=== PATIENT | male | born 1970 | race Caucasian/White ===

== ENCOUNTER 2016-05-26 09:14 | Emergency (ER) | payer OTHER ==
[2016-05-26 09:21] VITALS: TEMP 98.2; BMI 29.9
[2016-05-26] MEDS ORDERED: KETOROLAC TROMETHAMINE 30 MG/1 ML VIAL ONE (10:11)
[2016-05-26] MEDS ORDERED: ONDANSETRON 4 MG/2 ML VIAL ONE (10:12)
[2016-05-26 10:23] VITALS: BP 129/95; PULSE 90
[2016-05-26 10:23] LABS: BASOPHIL 0.3 % (0-2.0); EOSINOPHIL 2.3 % (0-4.5); MCH 30.7 pg (25.7-33.7); MCHC 33.8 g/dl (32.0-35.9); MEAN CELL VOLUME 90.8 fl (80-96); MEAN PLT VOLUME 8.7 fl (7.5-11.1); NEUTROPHILS 57.6 % (42.8-82.8); PLATELET COUNT 302 K/MM3 (134-434); RDW 12.4 % (11.9-15.9); WHITE BLOOD COUNT 9.1 K/mm3 (4.0-10.0)
[2016-05-26 10:41] LABS: ALBUMIN 3.8 g/dl (3.4-5.0); ALK PHOS 44 U/L (45-117); ANION GAP 9 (8-16); BILIRUBIN,TOTAL 0.4 mg/dL (0.2-1.0); CALCIUM 8.2 mg/dL (8.5-10.1); CO2 23 mmol/L (21-32); CREATININE 0.7 mg/dL (0.7-1.3); GLUCOSE,RANDOM 123 mg/dL (74-106); SGPT/ALT 75 U/L (12-78); TOT PROT 7.2 g/dl (6.4-8.2)
[2016-05-26 10:46] LABS: SGOT/AST 33 U/L (15-37)
--- NOTE | 2016-05-26 11:03 | PDOC ---
History of Present Illness - General History Source: Patient Exam Limitations: No Limitations <Esperanza Doyle - Last Filed: 05/26/16 10:56> - History of Present Illness Initial Comments: 05/26/16 11:12 The patient is a 45 year old male with a past medical hx of diabetes, and hypertension who presents to the ED for evaluation of hypoglycemia since today. 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 He ate an apple and drank a Coke and his levels kept decreasing. He reports the lowest level was a 47. He states he has never had a blood sugar level this low, therefore, he came to the ED for further evaluation. He notes he ate a full meal around 0200 this morning at work. The patient states he does not check his sugar levels regularly, only when he feels off. The patient notes he has been sick for three days with nausea, vomiting, and diarrhea, but has no further complaints at this time. He notes he has been compliant with his Metformin. The patient denies abdominal pain The patient denies SOB, chest pain, weakness The patient denies fever, chills Allergies: NKDA Social: No toxic habits reported Surgical: None reported PCP: Dr. Foster <Nieves Lowery - Last Filed: 05/26/16 11:13> - General Chief Complaint: Blood Sugar Problem Stated Complaint: BLOOD SUGAR PROBLEM Time Seen by Provider: 05/26/16 09:23 Past History - Past Medical History Diabetes: Yes HTN: Yes - Psycho/Social/Smoking Cessation Hx Suicidal Ideation: No Smoking History: Never smoked Information on smoking cessation initiated: No Hx Alcohol Use: No Drug/Substance Use Hx: No Substance Use Type: None <Esperanza Doyle - Last Filed: 05/26/16 10:56> <Nieves Lowery - Last Filed: 05/26/16 11:13> - Past Medical History Allergies/Adverse Reactions: Allergies Allergy/AdvReac Type Severity Reaction Status Date / Time No Known Allergies Allergy Verified 05/26/16 09:19 Home Medications: Ambulatory Orders Glimepiride [Amaryl -] 4 mg PO DAILY@0700 05/26/16 Lisinopril 5 mg PO DAILY 05/26/16 Metformin HCl [Glucophage] 1,000 mg PO BID 05/26/16 Review of Systems - Review of Systems Able to Perform ROS?: Yes Comments:: 05/26/16 11:12 GENERAL/CONSTITUTIONAL: +Hypoglycemia No: fever, chills, weakness, loss of appetite. HEAD, EYES, EARS, NOSE AND THROAT: No: change in vision, ear pain, discharge, sore throat, throat swelling. CARDIOVASCULAR: No: chest pain, lightheadedness, palpitations, syncope RESPIRATORY: No: cough, shortness of breath, wheezing, hemoptysis, stridor. GASTROINTESTINAL: +nausea, diarrhea, vomiting. No: abdominal cramping, rectal bleeding, constipation. GENITOURINARY: No: dysuria, hematuria, frequency, urgency, flank pain. MUSCULOSKELETAL: No: back pain, neck pain, joint pain, muscle swelling or pain SKIN: No: lesions, pallor, rash or easy bruising. NEUROLOGIC: No: headache, vertigo, paresthesias, weakness ENDOCRINE: No: unexplained weight gain or loss HEMATOLOGIC/LYMPHATIC: No: anemia, easy bleeding, swelling nodes <Nieves Lowery - Last Filed: 05/26/16 11:13> *Physical Exam - Vital Signs Last Vital Signs Temp Pulse Resp BP Pulse Ox 98.2 F 90 16 129/95 95 05/26/16 09:17 05/26/16 10:23 05/26/16 10:23 05/26/16 10:23 05/26/16 10:23 <Esperanza Doyle - Last Filed: 05/26/16 10:56> - Vital Signs Last Vital Signs Temp Pulse Resp BP Pulse Ox 98.2 F 90 16 129/95 95 05/26/16 09:17 05/26/16 10:23 05/26/16 10:23 05/26/16 10:23 05/26/16 10:23 - Physical Exam Comments: 05/26/16 11:12 GENERAL: The patient is in no acute distress. HEAD: Normal with no signs of trauma. EYES: PERRLA, EOMI, sclera anicteric, conjunctiva clear. ENT: Ears normal, nares patent, oropharynx clear without exudates. Moist mucous membranes. NECK: Normal range of motion, supple without lymphadenopathy, JVD, or masses. LUNGS: Breath sounds equal, clear to auscultation bilaterally. No wheezes, and no crackles. HEART:Regular rate and rhythm, normal S1 and S2 without murmur, rub or gallop. ABDOMEN: Soft, nontender, normoactive bowel sounds. No guarding, no rebound. EXTREMITIES: Normal range of motion, no edema. No clubbing or cyanosis. No erythema, or tenderness. NEUROLOGICAL: Cranial nerves II through XII grossly intact. Normal speech. No focal neurological deficits. MUSCULOSKELETAL: Back nontender to palpation, no CVA tenderness SKIN: Warm, Dry, normal turgor, no rashes or lesions noted. <Nieves Lowery - Last Filed: 05/26/16 11:13> ED Treatment Course - LABORATORY CBC & Chemistry Diagram: 05/26/16 10:02 05/26/16 10:02 - ADDITIONAL ORDERS Additional order review: Laboratory Results 05/26/16 10:02 Sodium 139 Potassium 4.2 Chloride 107 Carbon Dioxide 23 Anion Gap 9 BUN 11 Creatinine 0.7 Creat Clearance w eGFR > 60 Random Glucose 123 H Calcium 8.2 L Total Bilirubin 0.4 AST 33 ALT 75 Alkaline Phosphatase 44 L Total Protein 7.2 Albumin 3.8 05/26/16 10:02 RBC 4.97 MCV 90.8 MCHC 33.8 RDW 12.4 MPV 8.7 Neutrophils % 57.6 Lymphocytes % 26.5 Monocytes % 13.3 H Eosinophils % 2.3 Basophils % 0.3 <Esperanza Doyle - Last Filed: 05/26/16 10:56> - LABORATORY CBC & Chemistry Diagram: 05/26/16 10:02 05/26/16 10:02 - ADDITIONAL ORDERS Additional order review: Laboratory Results 05/26/16 10:02 Sodium 139 Potassium 4.2 Chloride 107 Carbon Dioxide 23 Anion Gap 9 BUN 11 Creatinine 0.7 Creat Clearance w eGFR > 60 Random Glucose 123 H Calcium 8.2 L Total Bilirubin 0.4 AST 33 ALT 75 Alkaline Phosphatase 44 L Total Protein 7.2 Albumin 3.8 05/26/16 10:02 RBC 4.97 MCV 90.8 MCHC 33.8 RDW 12.4 MPV 8.7 Neutrophils % 57.6 Lymphocytes % 26.5 Monocytes % 13.3 H Eosinophils % 2.3 Basophils % 0.3 <Nieves Lowery - Last Filed: 05/26/16 11:13> Medical Decision Making - Medical Decision Making 05/26/16 10:56 A portion of this note was documented by scribe services under my direction. I have reviewed the details of the note, within reason, and agree with the documentation with the following case summary and management plan written by me. Nursing documentation reviewed and incorporated into medical decision making This is a 45 yo M with a history of NIDDM, presenting to the ER Pt states he worked the overnight shift States that he had a recent nausea, vomiting, diarrhea Vomiting stopped Now patient states that when he returned from work this morning he felt weak and shaky His took his sugar It was 87 She gave him an apple Sugar was taken tow additional times Finally, sugar 40s Pt drank coke came to ER Sugar 134 Pt states he feels better No recent changes in medications Glimepirmide added 3 months ago 05/26/16 11:03 Laboratory Tests 05/26/16 05/26/16 10:02 10:02 WBC 9.1 Hgb 15.2 Hct 45.1 Plt Count 302 BUN 11 Creatinine 0.7 Random Glucose 123 H Pt asked to: Monitor his blood glucose Eat frequent small meals follow up with PMD re: oral hypoglycemic medications Clinical Impression: hypoglycemia, <Esperanza Doyle - Last Filed: 05/26/16 10:56> *DC/Admit/Observation/Transfer - Discharge Dispostion Admit: No <Esperanza Doyle - Last Filed: 05/26/16 10:56> - Attestations Scribe Attestion: 05/26/16 11:13 Documentation prepared by Nieves Lowery, acting as behavioral medical director for Esperanza Doyle MD/DO. <Nieves Lowery - Last Filed: 05/26/16 11:13> Diagnosis at time of Disposition: Hypoglycemia - Discharge Dispostion Disposition: HOME Condition at time of disposition: Improved - Referrals Referrals: Kristin Disla MD [Primary Care Provider] - - Patient Instructions Printed Discharge Instructions: DI for Hypoglycemia Additional Instructions: Olman I am sorry that your blood glucose was low this morning Please eat frequent and small meals Please plan to check your blood glucose at least twice per day Please call today for a follow up appointment with your primary care physician ( for medication adjustment) Please check your blood glucose immediately if you are feeling like your felt this morning Please keep something sweet with you in case your blood glucose goes very low - Post Discharge Activity Work/School Note: Back to Work
[2016-05-26 11:16] LABS: ACETONE SERUM NEGATIVE (NEGATIVE)
== END 2016-05-26 11:41 | disposition home or self-care (01) ==
LOC: JER 09:14
DX: E11.649 Type 2 diabetes mellitus with hypoglycemia without coma (principal); Z79.84 Long term (current) use of oral hypoglycemic drugs; I10 Essential (primary) hypertension
CPT/HCPCS: 36415; 80053; 82009; 85025; 99285-25

== ENCOUNTER 2017-08-27 06:26 | Inpatient (IN) | payer OTHER ==
--- NOTE | 2017-08-27 09:12 | PDOC ---
History of Present Illness - General Chief Complaint: Pain, Acute Stated Complaint: NECK PAIN Time Seen by Provider: 08/27/17 09:12 - History of Present Illness Initial Comments: 46 year old male with PMH of IDDM and HTN presenting with pain and swelling in the inferior posterior scalp for the past two months. States that he noticed slight swelling and pain in this area two months prior that has gradually worsened as the mass expanded over the past two months. He saw his PCP and they told him to follow up in the ED if became too painful but states that he was scheduled for a follow up but it became more painful today so he wanted to have it evaluated earlier. 08/27/17 11:51 Past History - Past Medical History Allergies/Adverse Reactions: Allergies Allergy/AdvReac Type Severity Reaction Status Date / Time No Known Allergies Allergy Verified 08/27/17 08:20 Home Medications: Ambulatory Orders Glimepiride [Amaryl -] 4 mg PO DAILY@0700 05/26/16 Lisinopril 5 mg PO DAILY 05/26/16 Metformin HCl [Glucophage] 1,000 mg PO BID 05/26/16 Aspirin Coated [Ecotrin -] 81 mg PO PRN 08/27/17 COPD: No Diabetes: Yes HTN: Yes - Suicide/Smoking/Psychosocial Hx Smoking History: Never smoked Have you smoked in the past 12 months: No Information on smoking cessation initiated: No Hx Alcohol Use: No Drug/Substance Use Hx: No Substance Use Type: None Review of Systems - Review of Systems Constitutional: No: Chills, Diaphoresis, Fever HEENTM: No: Blurred Vision, Recent change in vision Respiratory: No: Orthopnea, Shortness of Breath Cardiac (ROS): No: Chest Pain, Irregular Heart Rate ABD/GI: No: Constipated, Diarrhea, Nausea, Vomiting : No: Burning, Dysuria, Discharge Integumentary: Yes: Lesions, Lumps. No: Erythema, Flushing Neurological: Yes: Headache. No: Numbness, Paresthesia Psychiatric: No: Frequent Crying, Stressors *Physical Exam - Vital Signs Last Vital Signs Temp Pulse Resp BP Pulse Ox 97.4 F L 85 18 122/75 100 08/27/17 07:01 08/27/17 07:01 08/27/17 07:01 08/27/17 07:01 08/27/17 07:01 - Physical Exam General Appearance: Yes: Nourished, Appropriately Dressed. No: Apparent Distress HEENT: positive: EOMI, VINI, Normal ENT Inspection, Normal Voice Neck: positive: Trachea midline, Normal Thyroid, Supple. negative: Tender, Rigid Respiratory/Chest: positive: Lungs Clear, Respiratory Distress. negative: Chest Tender, Accessory Muscle Use Cardiovascular: positive: Regular Rhythm, Regular Rate Gastrointestinal/Abdominal: positive: Normal Bowel Sounds, Flat, Soft. negative : Tender Musculoskeletal: positive: Normal Inspection. negative: CVA Tenderness Extremity: positive: Normal Capillary Refill, Normal Inspection, Normal Range of Motion. negative: Tender Integumentary: positive: Normal Color, Dry, Warm, Swelling (Small posterior, inferior, occiptal, subcutaneous, firm, mobile, well circumscribed and measuring 2 cm in diameter) Neurologic: positive: permit review assistant II-XII NML intact, Fully Oriented, Alert, Normal Mood/ Affect, Normal Response, Motor Strength / ED Treatment Course - LABORATORY CBC & Chemistry Diagram: 08/27/17 11:40 08/27/17 11:40 Medical Decision Making - Medical Decision Making 46 year old male presenting with painful nodule in the posterior occipital scalp. CT read as a subcutaneous cyst. No obvious sign of infection although there is lymphadenopathy and reactive changes around the cyst. 08/27/17 14:57 Dr. Garcia evaluated the patient and will admit him for OR cyst removal because of diabetic history/ risk factor. Patient signed out in stable condition to Dr. Garcia. 08/27/17 17:05 *DC/Admit/Observation/Transfer Diagnosis at time of Disposition: Cyst - Discharge Dispostion Condition at time of disposition: Improved Admit: No - Referrals Referrals: Kristin Disla MD [Primary Care Provider] - Austyn Lopez MD [Staff Physician] - - Patient Instructions - Post Discharge Activity
--- NOTE | 2017-08-27 09:14 | PDOC ---
Attending Attestation - Resident Resident Name: Jocelyn Guzmán - ED Attending Attestation I have performed the following: I have examined & evaluated the patient, The case was reviewed & discussed with the resident, I agree w/resident's findings & plan, Exceptions are as noted - HPI HPI: 46 yo M presents with 2 week history of worsening R posterior neck mass. Now exquisitely tender. +Swelling. No f/c, weight changes, night sweats. - Physicial Exam PE: GENERAL: Awake, alert, and fully oriented, in no acute distress HEAD: No signs of trauma EYES: PERRLA, EOMI, sclera anicteric, conjunctiva clear ENT: Auricles normal inspection, hearing grossly normal, nares patent, oropharynx clear without exudates. Moist mucosa NECK: Normal ROM, supple. +Firm tender mass to R posterior neck. No anterior cervical lymphadenopathy. LUNGS: Breath sounds equal, clear to auscultation bilaterally. No wheezes, and no crackles. No supraclavicular lymphadenopathy. HEART: Regular rate and rhythm, normal S1 and S2, no murmurs, rubs or gallops ABDOMEN: Soft, nontender, normoactive bowel sounds. No guarding, no rebound. No masses EXTREMITIES: Normal range of motion, no edema. No clubbing or cyanosis. No cords, erythema, or tenderness. No axillary lymphadenopathy. NEUROLOGICAL: Cranial nerves II through XII grossly intact. Normal speech, normal gait SKIN: Warm, Dry, normal turgor, no rashes or lesions noted. - Medical Decision Making Pt with posterior neck mass, firm tender to palpation. Will obtain CT soft tissue to further evaluate for possible mass.
[2017-08-27] MEDS ORDERED: IBUPROFEN 600 MG TABLET (FP) PO ONE ×2 (10:59→11:42)
[2017-08-27 11:46] LABS: EOS % 1.9 % (0-4.5); HEMOGLOBIN 15.2 GM/dL (11.7-16.9); LYMPH % 44.5 % (8-40); MCH 30.8 pg (25.7-33.7); MCHC 34.6 g/dl (32.0-35.9); MEAN CELL VOLUME 89.1 fl (80-96); MEAN PLT VOLUME 8.3 fl (7.5-11.1); MONO % 9.7 % (3.8-10.2); NEUT % 42.9 % (42.8-82.8); PLATELET COUNT 306 K/MM3 (134-434); RBC 4.94 M/mm3 (4.00-5.60); RDW 12.1 % (11.9-15.9)
[2017-08-27 12:11] LABS: ALBUMIN 3.7 g/dl (3.4-5.0); ALK PHOS 68 U/L (45-117); ANION GAP 6 (8-16); BILIRUBIN,TOTAL 0.6 mg/dL (0.2-1.0); BLOOD UREA NITROGEN 19 mg/dL (7-18); CALCIUM 8.9 mg/dL (8.5-10.1); CHLORIDE 104 mmol/L (98-107); CO2 28 mmol/L (21-32); CREATININE 0.6 mg/dL (0.7-1.3); GLUCOSE,RANDOM 172 mg/dL (74-106); POTASSIUM 4.1 mmol/L (3.5-5.1); SGOT/AST 21 U/L (15-37); SGPT/ALT 57 U/L (12-78); SODIUM 138 mmol/L (136-145); TOT PROT 7.3 g/dl (6.4-8.2)
--- NOTE | 2017-08-27 15:36 | HP ---
Admitting History and Physical - Admission Chief Complaint: painful neck mass History of Present Illness: 46 yo male PMH HTN, DM type 2 presents with pain and swelling in the right posterior neck for the past two months. States that he noticed slight swelling and pain in this area two months prior that has gradually worsened as the mass expanded rated 10/10 at present. He saw his PCP and he was referred to the ED if became too painful. He denies trauma in the area. He denies fevers and chills, motion was limited by pain. He has no other similar lesions anywhere. Ct scan of the area noted 1.6cm skin related cyst. no personal history of hidradenits. History Source: Patient, Medical Record Limitations to Obtaining History: No Limitations - Past Medical History Cardiovascular: Yes: HTN Endocrine: Yes: Diabetes Mellitus - Smoking History Smoking history: Never smoked Have you smoked in the past 12 months: No - Alcohol/Substance Use Hx Alcohol Use: No History of Substance Use: reports: None - Social History Usual Living Arrangement: Yes: With Spouse ADL: Independent History of Recent Travel: No Home Medications - Allergies Allergies/Adverse Reactions: Allergies Allergy/AdvReac Type Severity Reaction Status Date / Time No Known Allergies Allergy Verified 08/27/17 08:20 - Home Medications Home Medications: Ambulatory Orders Glimepiride [Amaryl -] 4 mg PO DAILY@0700 05/26/16 Lisinopril 5 mg PO DAILY 05/26/16 Metformin HCl [Glucophage] 1,000 mg PO BID 05/26/16 Aspirin Coated [Ecotrin -] 81 mg PO PRN 08/27/17 Review of Systems - Review of Systems Constitutional: denies: Chills, Fever Eyes: denies: Blind Spots, Recent Change in Vision HENT: denies: Throat Pain Neck: reports: Swollen Glands, Tenderness (exquisite tenderness, right posterior neck 2cm fixed on skin. red and warm to touch) Cardiovascular: denies: Chest Pain, Palpitations Respiratory: denies: Cough, SOB Gastrointestinal: denies: Abdominal Pain Musculoskeletal: reports: Back Pain. denies: Muscle Pain, Muscle Cramps Integumentary: reports: Lump (right posterior neck). denies: Lesions, Pruritis Neurological: denies: Seizure, Syncope Endocrine: denies: Unexplained Weight Gain, Unexplained Weight Loss Hematology/Lymphatic: denies: Easily Bruised, Excessive Bleeding Psychiatric: denies: Anxiety, Depression Physical Examination Vital Signs: Vital Signs Temperature 97.4 F L 08/27/17 07:01 Pulse Rate 79 08/27/17 11:01 Respiratory Rate 18 08/27/17 07:01 Blood Pressure 108/67 08/27/17 11:01 O2 Sat by Pulse Oximetry (%) 98 08/27/17 11:01 Vital Signs Period Temp Pulse Resp BP Sys/Garcia Pulse Ox Last 24 Hr 97.4 F 79-85 18 108-122/67-75 98-100 Constitutional: Yes: Well Nourished, No Distress, Calm Eyes: Yes: Conjunctiva Clear, EOM Intact HENT: Yes: Atraumatic, Normocephalic Neck: Yes: Supple, Trachea Midline, Lymphadenopathy, Other (right posterior neck mass, firm, warm and tender to touch) Cardiovascular: Yes: Regular Rate and Rhythm, S1, S2. No: Murmur Respiratory: Yes: Regular, CTA Bilaterally Gastrointestinal: Yes: Normal Bowel Sounds, Soft. No: Tenderness ...Rectal Exam: Yes: Deferred Renal/: No: CVA Tenderness - Left, CVA Tenderness - Right Extremities: No: Cool, Cyanosis Edema: No Peripheral Pulses WNL: Yes Peripheral Pulses: Left Doralis Pedis: 2+, Right Dorsalis Pedis: 2+ Integumentary: No: Jaundice, Rash Neurological: Yes: Alert, Oriented Psychiatric: Yes: Alert, Oriented Labs: CBC, BMP 08/27/17 11:40 08/27/17 11:40 Imaging - Results Cat Scan: Report Reviewed, Image Reviewed (1.6cm right posterior sebaceous cyst with pericystic inflammatory changes) Problem List - Problems (1) Infected sebaceous cyst of skin Assessment/Plan: 46 yo male Diabetic with a right posterior infected sebaceous cyst Admit 23hours for pain control and antibiotics NPO after midnight IVF hydration IV antibiotics Discussed with patient risks, benefits and alternatives of excision of right posterior neck mass, including but not limited to bleeding, infection, injury to adjacent structures, need for further procedures, ; alternatives include antibiotics, delayed or no surgery - risks of this include failure of nonoperative therapy, sepsis, recurrence, .Patient desires to proceed with operation - will take to OR for above. Informed consent signed for same. Code(s): L72.3 - SEBACEOUS CYST; L08.9 - LOCAL INFECTION OF THE SKIN AND SUBCUTANEOUS TISSUE, UNSP (2) Cyst of neck Code(s): BVZ5235 - (3) HTN (hypertension) Code(s): I10 - ESSENTIAL (PRIMARY) HYPERTENSION Qualifiers: Hypertension type: essential hypertension Qualified Code(s): I10 - Essential (primary) hypertension (4) Diabetes Code(s): E11.9 - TYPE 2 DIABETES MELLITUS WITHOUT COMPLICATIONS Qualifiers: Diabetes mellitus type: type 2 Diabetes mellitus complication status: without complication
[2017-08-27] MEDS ORDERED: KETOROLAC TROMETHAMINE 15 MG/ML VIAL IVPUSH PRN (15:42)
[2017-08-27] MEDS ORDERED: morphine SULFATE 4 MG/ML VIAL IVPUSH PRN (15:42)
[2017-08-27] MEDS ORDERED: LISINOPRIL 5 MG TABLET (FP) PO ONE (16:15)
[2017-08-27] MEDS ORDERED: LISINOPRIL 5 MG TABLET (FP) ONE (16:29)
[2017-08-27] MEDS ORDERED: CEFAZOLIN 1 GM/D5W 1 GM/50 ML BAG ONE (16:30)
[2017-08-27] MEDS: INSULIN SLIDING SCALE (NOVOLOG) 1 VIAL SQ SCH ×2 (16:40→21:04)
[2017-08-27] MEDS: CEFAZOLIN 1 GM/D5W 1 GM/50 ML BAG IVPB SCH ×2 (16:40→21:04)
[2017-08-27] MEDS: D5-1/2NS+20 MEQ KCL - 20 MEQ/1,000 ML INFUS.BAG IV SCH (16:40)
[2017-08-27 16:55] LABS: INR 0.97 (0.82-1.09)
[2017-08-27 18:52] VITALS: BMI 28.1
[2017-08-27] MEDS ORDERED: PNEUMOC 13-VAL CONJ-DIP CRM/PF 0.5 ML DISP.SYRIN IM ONE (18:52)
[2017-08-27] MEDS ORDERED: PNEUMOCOCCAL 23 VACCINE 0.5 ML VIAL IM ONE (20:15)
[2017-08-28] MEDS: CEFAZOLIN 1 GM/D5W 1 GM/50 ML BAG IVPB SCH ×2 (02:30→08:31)
[2017-08-28] MEDS: D5-1/2NS+20 MEQ KCL - 20 MEQ/1,000 ML INFUS.BAG IV SCH (04:50)
[2017-08-28] MEDS: INSULIN SLIDING SCALE (NOVOLOG) 1 VIAL SQ SCH ×2 (06:06→13:41)
[2017-08-28] MEDS ORDERED: BUPIVACAINE HCL/PF 0.5% (5MG/ML) 10 ML VIAL ONE (10:26)
[2017-08-28] MEDS ORDERED: BACITRACIN 15 GM TUBE TOPICAL OINTMENT ONE (10:26)
[2017-08-28] MEDS ORDERED: LIDOCAINE HCL 1%, 10 MG/ML (20ML VIAL) ONE (10:26)
[2017-08-28] MEDS ORDERED: MIDAZOLAM HCL 2 MG/2 ML SINGLE DOSE VIAL ONE (11:19)
[2017-08-28] MEDS ORDERED: PROPOFOL 20 ML ONE ×2 (11:34)
[2017-08-28] MEDS ORDERED: BUPIVACAINE HCL/PF 0.5% (5MG/ML) 10 ML VIAL IJ ONE ×2 (11:40)
[2017-08-28] MEDS ORDERED: LIDOCAINE HCL 1%, 10 MG/ML (50 mL VIAL) IJ ONE ×2 (11:40)
[2017-08-28] MEDS ORDERED: KETOROLAC TROMETHAMINE 30 MG/1 ML VIAL ONE (11:54)
[2017-08-28] MEDS ORDERED: ONDANSETRON 4 MG/2 ML VIAL IVPUSH PRN ×2 (12:08→12:25)
[2017-08-28] MEDS ORDERED: PROMETHAZINE HCL 25 MG/1 ML VIAL IVPUSH PRN (12:08)
--- NOTE | 2017-08-28 12:09 | OP ---
Operative Note - Note: Operative Date: 08/28/17 Pre-Operative Diagnosis: infected right posterior neck mass Operation: excision of right posterior neck mass Findings: infected/ inflamed posterior neck mass resembling a trichilemmnal cyst Post-Operative Diagnosis: Same as Pre-op Surgeon: Arie Garcia Anesthesiologist/GRILL COOK: Lacey Amor Anesthesia: Local (lidocaine 1% and 0.5% marcaine ), MAC Estimated Blood Loss (mls): 2 Fluid Volume Replaced (mls): 400 Operative Report Dictated: Yes
--- NOTE | 2017-08-28 12:10 | DS ---
Physical Examination Vital Signs: Vital Signs Temperature 97.9 F 08/28/17 08:43 Pulse Rate 82 08/28/17 08:43 Respiratory Rate 16 08/28/17 08:43 Blood Pressure 111/67 08/28/17 08:43 O2 Sat by Pulse Oximetry (%) 97 08/28/17 08:35 Vital Signs Period Temp Pulse Resp BP Sys/Garcia Pulse Ox Last 24 Hr 97.5 F-98.4 F 81-91 16-20 99-120/60-77 95-100 Constitutional: Yes: No Distress, Calm, Obese Eyes: Yes: Conjunctiva Clear, EOM Intact HENT: Yes: Atraumatic, Normocephalic Neck: Yes: Supple, Trachea Midline Cardiovascular: Yes: Regular Rate and Rhythm, S1, S2. No: Murmur Respiratory: Yes: Regular, CTA Bilaterally Gastrointestinal: Yes: Normal Bowel Sounds, Soft. No: Tenderness ...Rectal Exam: Yes: Deferred Renal/: No: CVA Tenderness - Left, CVA Tenderness - Right Extremities: No: Cool, Cyanosis Edema: No Peripheral Pulses WNL: Yes Wound/Incision: Yes: Clean/Dry, Well Approximated, Sutures Intact. No: Draining , Bleeding Neurological: Yes: Alert, Oriented Psychiatric: Yes: Alert, Oriented Labs: CBC, BMP 08/27/17 11:40 08/27/17 11:40 Discharge Summary Reason For Visit: CYST Current Active Problems Cyst (Acute) Cyst of neck (Acute) Diabetes (Acute) HTN (hypertension) (Acute) Infected sebaceous cyst of skin (Acute) Procedures: Principal: Excision of infected right posterior neck mass Hospital Course: Admitted for an infected neck cyst, given IV antibiotics and glycemic control. Taken to OR for excision of infected cyst. Discharged home on oral antibiotics. Condition: Improved - Instructions Diet, Activity, Other Instructions: Postoperative instructions: You had an Excision of infected Right posterior neck mass on 08/28/[address] Arie Garcia of [facility]. Activity: Resume your usual activities gradually. Remove dressings 48 hours after surgery, if they are not already off. You may shower daily starting then , just pat the incision areas dry. Sutures will be removed in clinic. Eat lightly at first, but advance to your usual diet as tolerated. Pain: For pain, you may use and alternate Tylenol (acetaminophen) and/or ibuprofen every 6 hours each as needed; this means that you can take one OR the other at 3-hour intervals. If you are prescribed a Tylenol/narcotic combination for severe pain, use it instead of plain Tylenol as needed and switch back when your pain starts decreasing. Do not take more than 4000mg of acetaminophen in a day. Take medications as prescribed or indicated on the labeling. Follow-up: Call Dr. Garcia' office at [phone] to make your postop appointment (Monday 1-2 weeks after surgery as advised). Clinic is held in the [facility] on the first floor of [facility]. Call the office if you have: * increasing pain not responsive to pain medication * fever of 101F or higher * unusual or increasing bleeding or drainage from wounds * increasing redness or swelling at wound sites Also, see your primary medical doctor within 1-2 weeks. Referrals: Austyn Lopez MD [Staff Physician] - Kristin Disla MD [Primary Care Provider] - Disposition: HOME - Home Medications Comprehensive Discharge Medication List: Ambulatory Orders ANTIBIOTIC SENT TO PHARMACY: Keflex 500mg PO q6hour X 7 days Glimepiride [Amaryl -] 4 mg PO DAILY@0700 05/26/16 Lisinopril 5 mg PO DAILY 05/26/16 Metformin HCl [Glucophage] 1,000 mg PO BID 05/26/16 Aspirin Coated [Ecotrin -] 81 mg PO PRN 08/27/17
[2017-08-28] MEDS ORDERED: LACTATED RINGERS SOLUTION 1,000 ML IV SCH (12:15)
[2017-08-28] MEDS ORDERED: morphine SULFATE 4 MG/ML VIAL IVPUSH PRN (12:25)
[2017-08-28] MEDS ORDERED: KETOROLAC TROMETHAMINE 15 MG/ML VIAL IVPUSH PRN (12:25)
[2017-08-28 14:15] VITALS: TEMP 97.5
[2017-08-28] MEDS ORDERED: PT OWN MED DRAWER 7, Y5N ONE (14:22)
--- NOTE | 2017-08-28 14:36 | OP ---
DATE OF OPERATION: 08/28/2017 PREOPERATIVE DIAGNOSIS: Infected posterior neck mass. POSTOPERATIVE DIAGNOSIS: Infected posterior neck mass. PROCEDURE: Excision of right posterior neck mass. ATTENDING SURGEON: Arie Garcia MD DEPUTY ADMINISTRATOR: No one. ANESTHESIA: Dr. Chetna Carrera ANESTHESIA: Local 0.5% Marcaine and 1% lidocaine both plain in a ratio of 1:1 a total off and on 20 mL given in an area block and MAC. ESTIMATED BLOOD LOSS: 2 mL. IV FLUID: 400 mL. BRIEF FINDINGS: Infected bursa and inflamed posterior neck mass resembling a tricilemmnal cyst. INDICATION: The patient is a 46-year-old male hypertensive diabetic who presented to the emergency room with bright, red, inflamed, swollen posterior right neck mass that has been there approximately 2 weeks enlarging, gradually increasing in pain prompting a visit yesterday. His blood sugars were difficult to control. Slightly elevated white count. He was admitted for IV antibiotics and glycemic control. Scheduled the next day for excisional biopsy. After being explained the risks, benefits, and alternatives, informed consent was obtained and is on the chart. DESCRIPTION OF PROCEDURE: The patient was brought to the operating room and placed in a supine position on the operating room table with the right arm extended at 90 degrees perpendicular by axis. The patient was given sedation, supplemental oxygen, and when determined to be stable, was applied in the left lateral decubitus position with the right posterior neck shaved, prepped, and draped into a standard surgical field. We proceeded with a formal time-out identifying the operative site. Once all in the operating room were in agreement, we proceeded first with an elliptical incision inscribed on the skin. This was incised with a 15-blade scalpel. It was deepened and widened through subcutaneous tissue. A needle-tip Bovie was used to dissect through the dermal layer into an area of plain natural fat, which appeared normal in the nape of the neck. It was dissected at all aspect. Retracted in the surgical field with an Allis. The cyst was taken in its entirety without rupturing it. Inflammatory tissue and dirty fat was also debrided in the surgical field until clear. The site was irrigated. Hemostasis was obtained using Bovie cautery throughout the surgical crater when necessary. Specimen was passed off the field and sent to pathologic diagnosis. The space was then ablated using a 2-0 Vicryl in interrupted fashion lying in 2 interrupted sutures burying the knots. Once ablated, the linear incision was then closed with 3 vertical mattress sutures in an interrupted fashion and 2-0 nylon. The skin was cleaned. Sterile dressing was placed including bacitracin, a gauze sponge, and Tegaderm. The patient was awoken from sedation having tolerated procedure well. He was returned to recovery in stable condition. MD DESIREE [id number] MTDD
[2017-08-28 14:41] VITALS: BP 111/56; PULSE 81
[2017-08-28] MEDS ORDERED: CEFAZOLIN 1 GM/D5W 1 GM/50 ML BAG IVPB SCH (15:00)
[2017-08-28] MEDS ORDERED: INSULIN SLIDING SCALE (NOVOLOG) 1 VIAL SQ SCH (16:30)
--- NOTE | 2017-08-29 16:56 | PATH ---
Surgical Pathology Report Patient Name: MARIELLA NAVARRO Med. Rec. #: [id number] /Age/Gender: 1970 (Age: 46) / M Account: [id number] Location: [address] [place] [address]/[facility] Taken: 08/28/2017 Received: 08/28/2017 Reported: 08/29/2017 Physicians: Arie Garcia M.D. Specimen(s) Received RIGHT POSTERIOR NECK MASS Clinical History Infected right posterior neck cyst Final Diagnosis NECK MASS, POSTERIOR, EXCISION: RUPTURED AND INFLAMED EPIDERMAL INCLUSION CYST. Electronically Signed Clari Ascencio M.D. Gross Description Received in formalin labeled "right posterior neck mass," is a 1.5 x 0.2 cm riggins, elliptical portion of skin excised to depth of 2.5 cm. Sectioning reveals a focal possible disrupted cyst. Also received within the same container is a 1.3 x 1.0 x 0.3 cm aggregate of riggins-white possible cyst contents. [employer] Manager sections are submitted in one cassette. /08/28/2017 [facility]08/28/2017
== END 2017-08-28 15:25 | disposition home or self-care (01) | DRG 383 ==
LOC: JER 06:26 → JERBED 15:55 → J5S 19:28
PROC: 0JB40ZZ Excision of Right Neck Subcutaneous Tissue and Fascia, Open Approach (ICD-10-PCS; principal; 2017-08-28 17:00)
DX: L08.9 Local infection of the skin and subcutaneous tissue, unspecified (principal); R22.1 Localized swelling, mass and lump, neck; L72.12 Trichodermal cyst; I10 Essential (primary) hypertension; E11.9 Type 2 diabetes mellitus without complications; L72.3 Sebaceous cyst
CPT/HCPCS: 36415; 70491-TC; 80053; 82962; 85025; 85610; 86850; 86900; 86901; 87070; 87186; 87205; 88307-TC; 94760; 99283-25

== ENCOUNTER 2017-09-11 14:56 | Emergency (ER) | payer OTHER ==
--- NOTE | 2017-09-11 15:04 | PDOC ---
Rapid Medical Evaluation Time Seen by Provider: 09/11/17 15:01 Medical Evaluation: Allergies Allergy/AdvReac Type Severity Reaction Status Date / Time No Known Allergies Allergy Verified 08/27/17 08:20 09/11/17 15:02 I have performed a brief in-person evaluation of this patient. The patient presents with a chief complaint of: pain to site of sebaceous cyst removal Pertinent physical exam findings: suture site clean, dry I have ordered the following: nothing, patient seen by Dr. Garcia who will speak with FT team The patient will proceed to the ED for further evaluation. Discharge Disposition - Diagnosis Postoperative pain - Referrals - Patient Instructions - Post Discharge Activity
[2017-09-11 15:06] VITALS: BP 110/67; PULSE 95; TEMP 97.3; BMI 28.5
--- NOTE | 2017-09-11 15:33 | PDOC ---
Suture Removal/Wound Check HPI - History of Present Illness Chief Complaint: Wound Stated Complaint: PAIN Time Seen by Provider: 09/11/17 15:01 History Source: Yes: Patient Treated at: [facility] ED - Previous ED Treatment Type of procedure performed on last visit: Yes: I&D of Abscess Past History - Past Medical History Allergies/Adverse Reactions: Allergies Allergy/AdvReac Type Severity Reaction Status Date / Time No Known Allergies Allergy Verified 09/11/17 15:01 Home Medications: Ambulatory Orders Glimepiride [Amaryl -] 4 mg PO DAILY@0700 05/26/16 Lisinopril 5 mg PO DAILY 05/26/16 Metformin HCl [Glucophage] 1,000 mg PO BID 05/26/16 Aspirin Coated [Ecotrin -] 81 mg PO PRN 08/27/17 Cephalexin Monohydrate [Keflex -] 500 mg PO Q6H 7 Days #28 capsule 08/28/17 Levofloxacin [Levaquin] 500 mg PO DAILY #7 tablet 09/11/17 Metronidazole 500 mg PO TID #21 tablet 09/11/17 COPD: No Diabetes: Yes HTN: Yes - Suicide/Smoking/Psychosocial Hx Smoking History: Never smoked Have you smoked in the past 12 months: No Hx Alcohol Use: No Drug/Substance Use Hx: No Substance Use Type: None Suture Removal/Wound Check PE - Physical Exam Laceration/Wound Check Symptoms: reports: Discharge. denies: Pain, Fever, Chills, Redness Current Severity Level: None Maximum Severity Level: None Location of Laceration/Wound: right: Neck (wound to R neck w/ sutures intact w/ small opening draining minimal clear yellow secretion, c/w serous draiange, no pus, surrounding erythema or sig ttp) *Review of Systems - Review of Systems Constitutional: No: Chills, Fever ABD/GI: Yes: Diarrhea. No: Nausea, Vomiting, Abdominal cramping Medical Decision Making - Medical Decision Making 09/11/17 15:32 46 yo M, NIDDM, s/p I&D of infected sebaceous cyst o R neck > [address] Garcia of surgery at [facility], completed Keflex 2 days ago was scheduled for wound check in 2 days but for unclear reasons, sent to the ED ED by surgery. States he was seen by Dr. Garcia while in waiting room who told patient he wants him to be seen in fast track, and the plan was to ultimately restart him on antibiotics for drainage to wound. Pt denies pain to site of wound and no erythema. Patient states since starting keflex he has had approximately 1-2 episodes of non-bloody, watery stools, but denies abdominal pain, nausea, vomiting or fever. He should well-appearing and stable with wound to right neck with sutures intact with minimal drainage which appears to be serous in nature. No pus or erythema. Will contact Dr. Garcia for recommendations/follow-up 09/11/17 16:[address] Garcia who evaluated pt in waiting room and states wound drainage possibly represents serous exudate and not infection, however wants pt started on on levaquin and flagyl. MD aware of pt's complaint of diarrhea. States patient should f/u in office in 1 week. Patient stable for discharge. Encouraged intake of probiotics such as yogurt, as discussed with patient and family. Patient informed that if he is not able to tolerate antibiotics, i.e., worsening diarrhea, etc. to return to ED. 09/11/17 16:30 *DC/Admit/Observation/Transfer Diagnosis at time of Disposition: Postoperative pain - Discharge Dispostion Disposition: HOME Condition at time of disposition: Good - Prescriptions Prescriptions: Levofloxacin [Levaquin] 500 mg PO DAILY #7 tablet Metronidazole 500 mg PO TID #21 tablet - Referrals - Patient Instructions Additional Instructions: Take antibiotics as directed. If diarrhea persists and or worsens and you develop abdominal pain, nausea, vomiting or fever, return to ER immediately. Please follow-up with Dr. Garcia in office in one week - Post Discharge Activity
== END 2017-09-11 16:29 | disposition home or self-care (01) ==
LOC: JERFT 14:56
DX: G89.18 Other acute postprocedural pain (principal); L72.3 Sebaceous cyst; I10 Essential (primary) hypertension; E11.9 Type 2 diabetes mellitus without complications; Z79.84 Long term (current) use of oral hypoglycemic drugs
CPT/HCPCS: 87070; 87205; 99281-25

== ENCOUNTER 2017-09-29 18:36 | Emergency (ER) | payer OTHER ==
--- NOTE | 2017-09-29 18:48 | PDOC ---
Rapid Medical Evaluation Time Seen by Provider: 09/29/17 18:45 Medical Evaluation: Allergies Allergy/AdvReac Type Severity Reaction Status Date / Time No Known Allergies Allergy Verified 09/11/17 15:01 I have performed a brief in-person evaluation of this patient. The patient presents with a chief complaint of: lower abdominal pain, dysuria, and hematuria x 2 hours Pertinent physical exam findings: suprapubic TTP I have ordered the following: UA/culture, GC/chlamydia The patient will proceed to the ED for further evaluation. Discharge Disposition - Diagnosis Dysuria, Hematuria - Referrals - Patient Instructions - Post Discharge Activity
[2017-09-29 18:56] VITALS: BP 107/80; PULSE 107; TEMP 98.3; BMI 28.7
--- NOTE | 2017-09-29 19:17 | PDOC ---
History of Present Illness - General Chief Complaint: Hematuria Stated Complaint: PAIN Time Seen by Provider: 09/29/17 18:45 History Source: Patient Exam Limitations: No Limitations - History of Present Illness Initial Comments: This is a 46 YOM with h/o DM, HTN, who p/w hematuria, burning on urination, and LLQ pain for the past 2-3 hours. Past History - Past Medical History Allergies/Adverse Reactions: Allergies Allergy/AdvReac Type Severity Reaction Status Date / Time No Known Allergies Allergy Verified 09/29/17 18:45 Home Medications: Ambulatory Orders Glimepiride [Amaryl -] 4 mg PO DAILY@0700 05/26/16 Lisinopril 5 mg PO DAILY 05/26/16 Metformin HCl [Glucophage] 1,000 mg PO BID 05/26/16 Aspirin Coated [Ecotrin -] 81 mg PO PRN 08/27/17 Cephalexin Monohydrate [Keflex -] 500 mg PO Q6H 7 Days #28 capsule 08/28/17 Levofloxacin [Levaquin] 500 mg PO DAILY #7 tablet 09/11/17 Metronidazole 500 mg PO TID #21 tablet 09/11/17 COPD: No Diabetes: Yes HTN: Yes - Immunization History Immunization Up to Date: Yes - Suicide/Smoking/Psychosocial Hx Smoking History: Never smoked Have you smoked in the past 12 months: No Information on smoking cessation initiated: No Hx Alcohol Use: No Drug/Substance Use Hx: No Substance Use Type: None *Physical Exam - Vital Signs Last Vital Signs Temp Pulse Resp BP Pulse Ox 98.3 F 107 H 16 107/80 99 09/29/17 18:46 09/29/17 18:46 09/29/17 18:46 09/29/17 18:46 09/29/17 18:46 *DC/Admit/Observation/Transfer Diagnosis at time of Disposition: Dysuria, Hematuria - Referrals - Patient Instructions - Post Discharge Activity
--- NOTE | 2017-09-29 19:47 | PDOC ---
History of Present Illness - General History Source: Patient Exam Limitations: No Limitations - History of Present Illness Initial Comments: 09/29/17 20:14 The patient is a 46 year old male, with a significant past medical history of hypertension and diabetes, who presents to the emergency department with, 2 days of dysuria and 5 hours of multiple episodes of hematuria. The patient describes his dysuria to be localized to the tip of the penis. He reports taking Motrin, without relief. He reports associated fatigue. The patient was here three weeks ago for a surgery on his neck to remove a cyst. He denies any recent abdominal pain. He denies ever having similar symptoms. He denies any recent fevers, chills, headache or dizziness. He denies any recent nausea, vomit, diarrhea or constipation. He denies any recent chest pain or shortness of breath. He denies any recent frequency, or urgency Allergies: NKA Social History: Nonsmoker. Denies EtOH use and recreational drug use. <Marcy Maharaj - Last Filed: 09/29/17 20:13> <Darryl Albrecht - Last Filed: 09/30/17 02:45> - General Chief Complaint: Hematuria Stated Complaint: PAIN Time Seen by Provider: 09/29/17 18:45 Past History <Marcy Maharaj - Last Filed: 09/29/17 20:13> - Past Medical History COPD: No Diabetes: Yes HTN: Yes - Immunization History Immunization Up to Date: Yes - Suicide/Smoking/Psychosocial Hx Smoking History: Never smoked Have you smoked in the past 12 months: No Information on smoking cessation initiated: No Hx Alcohol Use: No Drug/Substance Use Hx: No Substance Use Type: None <Darryl Albrecht - Last Filed: 09/30/17 02:45> - Past Medical History Allergies/Adverse Reactions: Allergies Allergy/AdvReac Type Severity Reaction Status Date / Time No Known Allergies Allergy Verified 09/29/17 18:45 Home Medications: Ambulatory Orders Glimepiride [Amaryl -] 4 mg PO DAILY@0700 05/26/16 Lisinopril 5 mg PO DAILY 05/26/16 Metformin HCl [Glucophage] 1,000 mg PO BID 05/26/16 Aspirin Coated [Ecotrin -] 81 mg PO PRN 08/27/17 Cephalexin Monohydrate [Keflex -] 500 mg PO Q6H 7 Days #28 capsule 08/28/17 Levofloxacin [Levaquin] 500 mg PO DAILY #7 tablet 09/11/17 Metronidazole 500 mg PO TID #21 tablet 09/11/17 Cephalexin [Keflex] 500 mg PO BID #14 capsule 09/30/17 Review of Systems - Review of Systems Able to Perform ROS?: Yes Comments:: 09/29/17 20:14 +CONSTITUTIONAL: Fatigue. No fever, no chills EYES: No visual changes ENT: No ear pain, no sore throat CARDIOVASCULAR: No chest pain, no palpitations RESPIRATORY: No cough, no SOB GI: No abdominal pain, no nausea, no vomiting, no constipation, no diarrhea +GENITOURINARY: Dysuria. Hematuria. No frequency MUSKULOSKELETAL: No back pain, no joint pain, no myalgias SKIN: No rash NEURO: No headache <Marcy Maharaj - Last Filed: 09/29/17 20:13> *Physical Exam - Vital Signs Last Vital Signs Temp Pulse Resp BP Pulse Ox 98.3 F 107 H 16 107/80 99 09/29/17 18:46 09/29/17 18:46 09/29/17 18:46 09/29/17 18:46 09/29/17 18:46 - Physical Exam Comments: 09/29/17 20:15 CONSTITUTIONAL: Well-appearing; well-nourished; in no apparent distress HEAD: Normocephalic; atraumatic EYES: PERRL; EOM intact ENMT: External appears normal; normal oropharynx NECK: Supple; non-tender; no cervical lymphadenopathy CARD: Normal S1, S2; no murmurs, rubs, or gallops RESP: Normal chest excursion with respiration; breath sounds clear and equal bilaterally; no wheezes, rhonchi, or rales ABD: Soft, non-distended; non-tender; no palpable organomegaly, no palpable hernias +BACK: Mild left sided CVA tenderness. +GENITOURINARY: No lesions. No lymphadenopathy. EXT: Normal ROM in all four extremities; non-tender to palpation; distal pulses intact SKIN: Warm, dry, no rash NEURO: No focal neurological deficiencies. <Marcy Maharaj - Last Filed: 09/29/17 20:13> - Vital Signs Last Vital Signs Temp Pulse Resp BP Pulse Ox 98.3 F 107 H 16 107/80 99 09/29/17 18:46 09/29/17 18:46 09/29/17 18:46 09/29/17 18:46 09/29/17 18:46 <Darryl Albrecht - Last Filed: 09/30/17 02:45> ED Treatment Course - ADDITIONAL ORDERS Additional order review: Laboratory Results 09/29/17 19:15 Urine Color Red Urine Appearance Cloudy Urine pH 5.0 Ur Specific [place] 1.025 Urine Protein 2+ H Urine Glucose (UA) 1+ H Urine Ketones Negative Urine Blood 3+ H Urine Nitrite Negative Urine Bilirubin Negative Urine Urobilinogen Negative Ur Leukocyte Esterase 2+ H Urine WBC (Auto) 1638 Urine RBC (Auto) 5101 <Marcy Maharaj - Last Filed: 09/29/17 20:13> - LABORATORY CBC & Chemistry Diagram: 09/29/17 20:35 09/29/17 20:35 <Darryl Albrecht - Last Filed: 09/30/17 02:45> Medical Decision Making - Medical Decision Making 09/29/17 22:51 46-year-old male with history of diabetes, hypertension presents to the ER with painful hematuria. In the ER, patient is awake and alert, nontoxic appearing, with mild left CVA tenderness to palpation without any evidence of penile or urethral lesions. Differential diagnoses includes nephrolithiasis versus urethritis versus cystitis. Will obtain CBC/CMP/UA/urine culture. Will obtain renal and pelvic/bladder ultrasound. Will reassess. 09/30/17 02:42 CT about and pelvis reveals no evidence of acute pathology. Patient's symptoms may be related to a recently passed renal stone. Will discharge with by mouth antibiotics with urology follow-up. <Darryl Albrecht - Last Filed: 09/30/17 02:45> *DC/Admit/Observation/Transfer - Attestations Scribe Attestion: 09/29/17 20:17 Documentation prepared by Marcy Maharaj, acting as certified medical coder for Darryl Albrecht MD. <Marcy Maharaj - Last Filed: 09/29/17 20:13> - Attestations Physician Attestion: 09/29/17 22:50 The documentation was prepared by the scribe under my direct supervision. I have reviewed the documentation which correctly represents the findings, medical decision-making and critical action taken by me. <Darryl Albrecht - Last Filed: 09/30/17 02:45> Diagnosis at time of Disposition: Dysuria, Cystitis Hematuria Qualifiers: Hematuria type: unspecified type Qualified Code(s): R31.9 - Hematuria, unspecified - Discharge Dispostion Disposition: HOME Condition at time of disposition: Stable - Referrals Referrals: Rome Aguilar MD [Staff Physician] - - Patient Instructions Printed Discharge Instructions: DI for Hemorrhagic Cystitis
[2017-09-29 20:00] LABS: URINE APPEARANCE CLOUDY; URINE BILIRUBIN NEGATIVE (<2.0 mg/dL); URINE COLOR RED; URINE GLUCOSE (UA) 1+ (NEGATIVE); URINE KETONE NEGATIVE (NEGATIVE); URINE NITRITE NEGATIVE (NEGATIVE); URINE UROBILINOGEN NEGATIVE mg/dL (0.2-1.0)
[2017-09-29 20:01] LABS: URINE LEUK ESTERASE 2+ (NEGATIVE); URINE PROTEIN 2+ (NEGATIVE)
[2017-09-29 20:43] LABS: BASO % 0.3 % (0-2.0); EOS % 0.4 % (0-4.5); HEMATOCRIT 41.4 % (35.4-49); HEMOGLOBIN 14.5 GM/dL (11.7-16.9); LYMPH % 21.9 % (8-40); MCH 32.1 pg (25.7-33.7); MEAN CELL VOLUME 91.5 fl (80-96); MEAN PLT VOLUME 8.4 fl (7.5-11.1); MONO % 6.6 % (3.8-10.2); NEUT % 70.8 % (42.8-82.8); PLATELET COUNT 246 K/MM3 (134-434); RBC 4.52 M/mm3 (4.00-5.60); RDW 12.9 % (11.9-15.9); WHITE BLOOD COUNT 12.1 K/mm3 (4.0-10.0)
[2017-09-29 20:58] LABS: PROTHROMBIN TIME (PATIENT) 11.3 SEC (9.7-13.0)
[2017-09-29 21:12] LABS: ALBUMIN 3.8 g/dl (3.4-5.0); ANION GAP 11 (8-16); BLOOD UREA NITROGEN 13 mg/dL (7-18); CALCIUM 8.9 mg/dL (8.5-10.1); CHLORIDE 106 mmol/L (98-107); CO2 23 mmol/L (21-32); GLUCOSE,RANDOM 160 mg/dL (74-106); SODIUM 140 mmol/L (136-145)
[2017-09-29 21:16] LABS: ALK PHOS 54 U/L (45-117); BILIRUBIN,TOTAL 0.9 mg/dL (0.2-1.0); CREATININE 0.6 mg/dL (0.7-1.3); SGPT/ALT 55 U/L (12-78); TOT PROT 6.9 g/dl (6.4-8.2)
[2017-09-29 21:17] LABS: POTASSIUM 4.2 mmol/L (3.5-5.1); SGOT/AST 24 U/L (15-37)
[2017-09-29] MEDS ORDERED: CEFTRIAXONE 1,000 MG in DEXTROSE 5%-WATER - 50 ML IVPB ONE (23:42)
[2017-09-30] MEDS ORDERED: CEFTRIAXONE 1 GM/50 ML BAG ONE (00:26)
--- NOTE | 2017-10-02 07:43 | PDOC ---
Patient Follow-up (Call Back) - Post ED Follow - Up Condition at time of discharge: Stable Disposition at time of original discharge: HOME Reason for Call Back: Abnwl. Microbiology (Attempted to leave message but unable to leave voicemail. +urine culture lactose fermenting neg bacilli. on keflex - most likely does not cover.)
== END 2017-09-30 03:44 | disposition home or self-care (01) ==
LOC: JER 18:36
DX: N30.01 Acute cystitis with hematuria (principal); I10 Essential (primary) hypertension; E11.9 Type 2 diabetes mellitus without complications; Z79.84 Long term (current) use of oral hypoglycemic drugs
CPT/HCPCS: 36415; 74176; 76775-TC; 76856-TC; 80053; 81003; 81015; 85025; 85610; 87086; 87186; 87491; 87591; 96365; 99283-25

== ENCOUNTER 2021-06-29 06:35 | Emergency (ER) | payer OTHER ==
[2021-06-29 07:10] VITALS: BP 133/88; PULSE 98; TEMP 97.9; BMI 25.7
[2021-06-29] MEDS ORDERED: LIDO 2%/EPI 1:200000 PRESRVFRE (20 ML SDVIAL) SNB ONE (08:08)
== END 2021-06-29 08:31 | disposition home or self-care (01) ==
LOC: JER 06:35
PROC: 0H94XZZ Drainage of Neck Skin, External Approach (ICD-10-PCS; principal; 2021-06-29)
DX: L72.3 Sebaceous cyst (principal)
CPT/HCPCS: 10060; 87070; 87205; 99283-25

== ENCOUNTER 2021-10-10 22:34 | Emergency (ER) | payer OTHER ==
[2021-10-10 23:14] VITALS: TEMP 98.1; BMI 25.7
[2021-10-11] MEDS ORDERED: SODIUM CHLORIDE 0.9% 500 ML INFUS.BAG IV ONE (02:15)
[2021-10-11] MEDS ORDERED: AMOX TR/POT CLAV 875MG/125MG TABLETS (FP) PO ONE (02:38)
[2021-10-11] MEDS ORDERED: AMOX TR/POT CLAV 875MG/125MG TABLETS (FP) ONE (03:10)
[2021-10-11 03:27] VITALS: BP 112/75; PULSE 105
== END 2021-10-11 03:28 | disposition home or self-care (01) ==
LOC: JER 22:34
DX: K52.9 Noninfective gastroenteritis and colitis, unspecified (principal)
CPT/HCPCS: 0241U-QW; 99284-25